=== PATIENT | male | born 1965 | race Caucasian/White ===

== ENCOUNTER 2024-07-20 12:19 | Emergency (ER) | payer OTHER, SELFPAY ==
[2024-07-20 12:27] VITALS: BP 145/85; PULSE 72; RESP 18; TEMP 36.8; O2SAT 99; BMI 20.8
--- NOTE | 2024-07-20 12:27 | ED_ITS ---
HPI - Headache General Chief Complaint: Headache Stated Complaint: migraine Time Seen by Provider: 07/20/24 15:05 Source: patient Mode of arrival: ambulatory Limitations: no limitations History of Present Illness ED Provider: veena colin np HPI Narrative: Patient is a 59-year-old male who presents to the emergency department for evaluation of acute on chronic migraine with onset yesterday, has been taking age scheduled trialed Excedrin migraine yesterday without improvement. He states that his current migraine feels typical without any acute changes from his baseline. Headache is left-sided, feels pain diffusely in and extends to neck again which is typically. He does endorse having blurred vision but this is bilateral and chronic, he needs a new prescription glasses. States that symptoms are usually improved when he comes to the hospital with Toradol and Ativan. Previous neurologist in [place] last seen about a year ago, had a CT about 1 year ago, no abnormal findings. Denies any red flag symptoms including fevers, chills, neck stiffness, malaise, aphasia, weakness, poor coordination, descriptors such as ?the worst headache ever ?or ?thunderclap?, or painful temporal region. Denies dizziness, lightheadedness, URI symptoms, chest pain, shortness of breath, numbness or tingling of the extremities. Related Data Allergies Allergy/AdvReac Type Severity Reaction Status Date / Time cyclobenzaprine Allergy Unknown SLEEP Verified 07/20/24 15:10 [From FLEXERIL] WALKING diphenhydramine Allergy Unknown UNSTEADY Verified 07/20/24 15:10 [From BENADRYL] GAIT itraconazole [From SPORANOX] Allergy Unknown RASH Verified 07/20/24 15:10 Review of Systems Review of Systems: Yes all other systems are reviewed and are negative [facility] Past Medical History Attestation statement: The following information was validated with the patient. Source: old records reviewed Social History Social History Advance Directives: No Advance Directives Information Provided: Yes Physical Exam Vital Signs: Vital Signs: Last Vital Signs Temp 98.2 F 07/20/24 12:27 Pulse 72 07/20/24 12:27 Resp 18 07/20/24 12:27 BP 145/85 H 07/20/24 12:27 Pulse Ox 99 07/20/24 12:27 O2 Del Method Room Air 07/20/24 12:27 BMI result Body Mass Index 20.8 Appearance: Alert.?Oriented to person, place and time. No acute distress.?Normal affect. Head: Normocephalic, atraumatic Eyes: Pupils equal, round and reactive to light. EOMI. No nystagmus. No ptosis. No tenderness to palpation over the temporal region. ENT: External auditory canal normal tympanic membrane pearly carl[place] and intact bilaterally. Oropharynx normal. Neck: Normal inspection.? Neck supple. No nuchal rigidity. CVS: Heart sounds normal. Normal heart rate and rhythm.? Pulses normal.?? Respiratory: No respiratory distress.? Lung sounds clear to auscultation bilaterally?? Abdomen: Soft and non-tender. Normoactive bowel sounds. ?? Skin: Skin warm and dry.? Normal skin color.? ?? Extremities: No lower extremity edema.? Neuro: Moves all extremities spontaneously. Sensation intact bilaterally. CN II- XII intact. No focal neuro deficits. Ambulatory with steady gait. Medications Administered Discontinued Medications Generic Name Dose Route Start Last Admin Trade Name Junitoq PRN Reason Stop Dose Admin Sodium Chloride 1,000 mls @ 999 mls/hr 07/20/24 15:15 07/20/24 16:22 Ns IV 07/20/24 16:15 Infused .Q1H1M GABRIELLA Infusion Ketorolac Tromethamine 15 mg 07/20/24 15:05 07/20/24 15:18 Ketorolac Tromethamine 15 Mg/Ml Vial IVPUSH 07/20/24 15:06 15 mg ONCE ONE Administration Lorazepam 1 mg 07/20/24 15:05 07/20/24 15:18 Lorazepam 2 Mg/Ml Vial IVPUSH 07/20/24 15:06 1 mg ONCE ONE Administration Medical Decision Making Medical Decision Making [facility] Narrative: Patient is a 59-year-old male with past medical history migraine headaches who presents emergency department for evaluation of acute on chronic migraine with no abnormal findings or changes from his baseline. Topiramate and Excedrin have not been helpful for him. He states he seldom requires intervention in the emergency department for migraines but typically Toradol and lorazepam relieve his symptoms. Trauma or injury to suggest SDH, SDH, ICH. Given no acute changes, recent imaging in the past year without abnormal findings lower suspicion for [employer]SULTANT mass. No recent infectious symptoms to suggest meningitis or encephalitis. No associated neck stiffness dizziness lightheadedness that would fever cervical artery dissection. No focal neurological deficits. Patient with a history of recurrent and or similar headache, there is no substantial change to typical headache pattern, there are no red flag symptoms, no focal neurological deficits, no high risk comorbidities, relieved with Toradol and Ativan, at this time feel that patient is stable for discharge home, advised of return precautions. Differential Diagnosis Differential Diagnoses: The differential diagnosis associated with the presentation includes (SDH, SAH, ICH, [employer] mass, meningitis, encephalitis, CVA, GCA, migraine, headache) Discharge Plan Discharge Clinical Impression: Migraine Patient Disposition: Home, Self-Care Instructions: Migraine Headache (ED) Additional Instructions: Migraine headache was resolved with Toradol and Ativan while in the emergency department. Continue taking your home medications as prescribed. Follow-up with PCP. Return with any new or worsening symptoms or concerns. Referrals: Physician,None [Primary Care Provider] - Print Language: Guyanese
--- OUTSIDE RECORDS SUMMARY | 2024-07-20 15:07 | XMS_ITS | Encounter Summary ---
Author Organization [employer]: [facility] Address [address] [place] [address] [address] [place] [address] Care Team Providers Care Physics Instructor Name Role Phone Unavailable Primary Care Provider Unavailabl e Encounter Details Date Type Department Care Team (Late st Contact Info) Description 11/16/2022 [facility] [address] [place] [address] Generic, Provider [address] [id number] Urology Progress Note 11/03/22 Social History Tobacco Use Types Packs/Day Years Used Date Smoking Tobacco: Never Assessed Sex and Gender Information Value Date Recorded Sex Assigned at Not on file Gender Identity Not on file Sexual Orientation Not on file documented as of this encounter Plan of Treatment Not on file documented as of this encounter Visit Diagnoses Not on filedocumented in this encounter
--- OUTSIDE RECORDS SUMMARY | 2024-07-20 15:07 | XMS_ITS | Continuity of Care Document ---
Author Organization [employer] Address [address] [place] [address] Phone Care Team Providers Care Gasfitter Name Role Phone Devorah Montoya Unavailable Unavailabl e Advance Directives Directive Yes / No Effective Date File Name No Information Encounters Encounter Description Practice Location Reason(s) For Visit Diagnoses Date Provider Providers Copied on Encounter [employer], [address], [id number], tel:[phone] [place] No Information 3 Rajesh Fairchild. [address] [place], [address], [place]. tel:[phone] Family History Family Member Type Diagnosis Age At Onset No Information Payers Payer name Insurance type Covered green party ID Authoriza tion(s) No Information Social History Type Description Quantity Date Captured Comments Sex Male Smoking Status No Information Chief Complaint And Reason For Visit No Information Reason For Referral Reason For Referral No Information Plan Of Treatment Date Type Action Status Goal Depression screening. Due on due Goal Td vaccine. Due on 23 due Goal Tdap. Due on due Goal FIT. Due on due Goal Influenza vaccine. Due on due Goal Colonoscopy. Due on 023 due Goal Cologuard. Due on 3 due Goal FIT-DNA. Due on due Goal Lipid panel. Due on 023 due Goal Hepatitis C screening. Due o n due Goal Zoster vaccine (). Due on due History Of Present Illness Encounter Date Complaint History Of Prese nt Illness No Information Functional Status Date Functional Assessmen t No Information Instructions Date Instruction Additional Infor mation No Information Assessments Type Assessment Date No Information Patient Care Teams Name Effective Dates (start - stop) Status Members No Information
--- OUTSIDE RECORDS SUMMARY | 2024-07-20 15:07 | XMS_ITS | Clinical Summary ---
Author Organization [employer]: [facility] & [facility] Address [address] [place] [address] [place] [address] Care Team Providers Care Mold Chipper Name Role Phone Unavailable Primary Care Provider Unavailabl e Social History Tobacco Use Types Packs/Day Years Used Date Smoking Tobacco: Never Assessed Sex and Gender Information Value Date Recorded Sex Assigned at Not on file Gender Identity Not on file Sexual Orientation Not on file Plan of Treatment Not on file
--- OUTSIDE RECORDS SUMMARY | 2024-07-20 15:07 | XMS_ITS | Referral Summary ---
Author Organization [employer]: [facility] & [facility] Address [address] [place] [address] [address] [address] Care Team Providers Care Pharmacy Services Director Name Role Phone Unavailable Primary Care Provider Unavailabl e Social History Tobacco Use Types Packs/Day Years Used Date Smoking Tobacco: Never Assessed Sex and Gender Information Value Date Recorded Sex Assigned at Not on file Gender Identity Not on file Sexual Orientation Not on file Plan of Treatment Not on file
[2024-07-20] MEDS: Ketorolac Tromethamine 15 MG/ML VIAL IVPUSH (15:18)
[2024-07-20] MEDS: LORazepam 2 MG/ML VIAL 1 MG IVPUSH (15:18)
[2024-07-20] MEDS: 0.9 % Sodium Chloride 1,000 ML 999 ML IV (15:19)
[2024-07-20 16:31] VITALS: BP 137/82; PULSE 68; RESP 16; TEMP 36.8; O2SAT 99
[2024-07-20 16:36] VITALS: BP 137/82; PULSE 68; RESP 16; TEMP 36.8; O2SAT 99
== END 2024-07-20 16:37 | disposition home or self-care (01) ==
PROVIDERS: Emergency Provider Emergency Medicine Emergency Medical Services
DX: G43.909 Migraine, unspecified, not intractable, without status migrainosus (principal); R11.0 Nausea; H53.8 Other visual disturbances; Z79.899 Other long term (current) drug therapy
CPT/HCPCS: 96361; 96374; 96375; 99284; J1885; J2060

== ENCOUNTER 2024-07-26 19:26 | Emergency (ER) | payer OTHER, SELFPAY ==
[2024-07-26 19:53] VITALS: BP 137/88; PULSE 63; RESP 16; TEMP 37.3; O2SAT 98; BMI 22.3
--- NOTE | 2024-07-26 19:55 | ED_ITS ---
HPI - General Adult General Chief complaint: Headache Stated complaint: migraine x3 days Time Seen by Provider: 07/26/24 23:38 Source: patient Limitations: no limitations History of Present Illness ED Provider: Ginna De La Paz PA-C HPI narrative: 59-year-old male with a history of migraine on Topamax, presents with migraine x3 days. Pain is left-sided and retro-orbital. Associated posterior left-sided neck pain, phonophobia and nausea. Denies photophobia, dizziness or active vomiting. Patient states his symptoms have been refractory to his home medications. Denies fever or recent illness. Related Data Allergies Allergy/AdvReac Type Severity Reaction Status Date / Time cyclobenzaprine Allergy Unknown SLEEP Verified 07/26/24 19:54 [From FLEXERIL] WALKING diphenhydramine Allergy Unknown UNSTEADY Verified 07/26/24 19:54 [From BENADRYL] GAIT itraconazole [From SPORANOX] Allergy Unknown RASH Verified 07/26/24 19:54 Review of Systems Review of Systems: Yes all other systems are reviewed and are negative Constitutional: Constitutional: Denies fatigue, Denies fever(s) and Reports headache(s) ENT: Denies dizziness, Reports headache(s) and Reports neck pain Cardiovascular: Cardiovascular: Denies chest pain and Denies dyspnea Respiratory: Respiratory: Denies cough and Denies dyspnea Gastrointestinal: Gastrointestinal: Reports nausea and Denies vomiting Musculoskeletal: Musculoskeletal: Reports neck pain Neurologic: Denies dizziness and Reports headache(s) Endocrine: Endocrine: Denies fatigue PMFSH Past Medical History Attestation statement: The following information was validated with the patient. Social History Social History Smoked in Last 30 Days: No Use of substances other than those prescribed or required for medical reasons: No Advance Directives: No Advance Directives Information Provided: No Do you have a plan to hurt others: No Plan Physical Exam ED Vital Signs: Vital Signs - 24 hr 07/26/24 19:53 07/27/24 00:34 Temperature 99.1 F 98.5 F Pulse Rate 63 87 Respiratory Rate 16 18 Blood Pressure 137/88 135/78 Pulse Oximetry 98 98 Oxygen Delivery Method Room Air Room Air BMI result Body Mass Index 22.3 Const Other: Alert well in appearance Orientation/consciousness: patient oriented x3 Neck Other: Full range of motion no meningeal signs Resp Effort & Inspection: normal respiratory effort Cardio Other: Normal peripheral perfusion Skin Other: Warm dry no rash Neuro General: patient oriented x3, gait normal, no focal motor deficits and CN's II- XI intact bilaterally Psych Other: Cooperative Course Course Course Narrative: This is a rapid medical exam performed by Vivian Daily NP: Additional HPI, ROS, PE not included below will be deferred to primary provider. Patient is a 59-year-old male with history of migraines presenting to the emergency department with complaint of headache for the past 3 days. Has used Topamax and Excedrin with little relief. States pain is beginning to radiate into neck, feels cramping sensation. Denies nausea vomiting. Reevaluation(s) Reevaluation #1: Headache resolved Time: 01:13 Medications Administered Generic Name Dose Route Start Last Admin Trade Name Freq PRN Reason Stop Dose Admin Sodium Chloride 1,000 mls @ 999 mls/hr 07/27/24 00:15 07/27/24 00:20 Ns IV 07/27/24 01:15 999 mls/hr .Q1H1M GABRIELLA Administration Discontinued Medications Generic Name Dose Route Start Last Admin Trade Name Freq PRN Reason Stop Dose Admin Ketorolac Tromethamine 15 mg 07/27/24 00:12 07/27/24 00:20 Ketorolac Tromethamine 15 Mg/Ml Vial IVPUSH 07/27/24 00:13 15 mg ONCE ONE Administration Midazolam HCl 2.5 mg 07/27/24 00:12 07/27/24 00:20 Midazolam Hcl 5 Mg/Ml Vial IVPUSH 07/27/24 00:13 2.5 mg ONCE ONE Administration Medical Decision Making Medical Decision Making [facility] Narrative: 59-year-old male with a history of migraine on Topamax, presents with migraine x3 days. Pain is left-sided and retro-orbital. Associated posterior left-sided neck pain, phonophobia and nausea. Denies photophobia, dizziness or active v omiting. Patient states his symptoms have been refractory to his home medications. Denies fever or recent illness. Problem: Migraine History: Per patient I have considered the following differential diagnoses: Migraine, intracranial hemorrhage, meningitis Plan: Patient here with a migraine with symptoms that are typical for him. He states Toradol and Ativan with IV fluid typically help his symptoms. Given absence of Ativan we will give Versed. Thought about intracranial hemorrhage, however there was no preceding trauma, the patient was neurologically intact, no indication for head CT. Thought about meningitis given concurrent neck pain, however there were no meningeal signs on exam he has not been ill he is afebrile. Discharge Plan Discharge Clinical Impression: Migraine Patient Disposition: Home, Self-Care Instructions: Migraine Headache (ED) Additional Instructions: Your headache improved with Toradol and Versed. Continue to follow up with the providers that manage your chronic migraines. Print Language: [place] Islander
--- OUTSIDE RECORDS SUMMARY | 2024-07-26 22:15 | XMS_ITS | Clinical Summary ---
Author Organization [employer]: [facility] Address [address] [place] [address] [place] [address] Care Team Providers Care Special Assets Officer Name Role Phone Unavailable Primary Care Provider Unavailabl e Social History Tobacco Use Types Packs/Day Years Used Date Smoking Tobacco: Never Assessed Sex and Gender Information Value Date Recorded Sex Assigned at Not on file Gender Identity Not on file Sexual Orientation Not on file Plan of Treatment Not on file
--- OUTSIDE RECORDS SUMMARY | 2024-07-26 22:15 | XMS_ITS | Referral Summary ---
Author Organization [employer]: [facility] Address [address] [place] [address] [address] Care Team Providers Care Connection Worker Name Role Phone Unavailable Primary Care Provider Unavailabl e Social History Tobacco Use Types Packs/Day Years Used Date Smoking Tobacco: Never Assessed Sex and Gender Information Value Date Recorded Sex Assigned at Not on file Gender Identity Not on file Sexual Orientation Not on file Plan of Treatment Not on file
--- OUTSIDE RECORDS SUMMARY | 2024-07-26 22:15 | XMS_ITS | Continuity of Care Document ---
Author Organization [employer] Address [address] [place] [address] Phone Care Team Providers Care Tax Compliance Agent Name Role Phone Devorah Montoya Unavailable Unavailabl e Advance Directives Directive Yes / No Effective Date File Name No Information Encounters Encounter Description Practice Location Reason(s) For Visit Diagnoses Date Provider Providers Copied on Encounter [employer], [address], [id number], tel:[phone] [place] No Information 3 Rajesh Fairchild. [address] [place], [address], [place]. tel:[phone] Family History Family Member Type Diagnosis Age At Onset No Information Payers Payer name Insurance type Covered green party ID Authoriza tion(s) No Information Social History Type Description Quantity Date Captured Comments Sex Male Smoking Status No Information Chief Complaint And Reason For Visit No Information Reason For Referral Reason For Referral No Information Plan Of Treatment Date Type Action Status Goal Zoster vaccine (1st). Due on due Goal Hepatitis C screening. Due o n due Goal Lipid panel. Due on 023 due Goal Depression screening. Due on due Goal Td vaccine. Due on 23 due Goal FIT-DNA. Due on due Goal Cologuard. Due on 3 due Goal Colonoscopy. Due on 023 due Goal Influenza vaccine. Due on due Goal Tdap. Due on due Goal FIT. Due on due History Of Present Illness Encounter Date Complaint History Of Prese nt Illness No Information Functional Status Date Functional Assessmen t No Information Instructions Date Instruction Additional Infor mation No Information Assessments Type Assessment Date No Information Patient Care Teams Name Effective Dates (start - stop) Status Members No Information
[2024-07-27] MEDS: 0.9 % Sodium Chloride 1,000 ML 999 ML IV (00:20)
[2024-07-27] MEDS: Midazolam HCl 5 MG/ML VIAL 2.5 MG IVPUSH (00:20)
[2024-07-27] MEDS: Ketorolac Tromethamine 15 MG/ML VIAL IVPUSH (00:20)
[2024-07-27 00:34] VITALS: BP 135/78; PULSE 87; RESP 18; TEMP 36.9; O2SAT 98
--- NOTE | 2024-07-27 01:10 | PC.NURSE ---
after medication administration, pt reports pain relief and headache has subsided. jennifer evans
[2024-07-27 01:18] VITALS: BP 135/78; PULSE 87; RESP 18; TEMP 36.9; O2SAT 98
== END 2024-07-27 01:19 | disposition home or self-care (01) ==
PROVIDERS: Emergency Provider Emergency Medicine
DX: G43.909 Migraine, unspecified, not intractable, without status migrainosus (principal)
CPT/HCPCS: 96361; 96374; 96375; 99284; 99285; J1885; J2250

== ENCOUNTER → 2025-04-10 18:42 | Outpatient (BNV) | payer OTHER, SELFPAY | PROVIDERS: Admitting Provider Family Medicine; Emergency Provider Student in an Organized Health Care Education/Training Program; Visit Provider Internal Medicine | DX: R94.31 Abnormal electrocardiogram [ECG] [EKG] (principal); R07.9 Chest pain, unspecified; E87.6 Hypokalemia | CPT/HCPCS: 93010 ==

== ENCOUNTER → 2025-04-10 18:55 | Outpatient (BNV) | payer OTHER, SELFPAY | PROVIDERS: Emergency Provider Student in an Organized Health Care Education/Training Program; Visit Provider Student in an Organized Health Care Education/Training Program | DX: J98.11 Atelectasis (principal); J90 Pleural effusion, not elsewhere classified; R07.9 Chest pain, unspecified | CPT/HCPCS: 71045; 71275 ==

== ENCOUNTER → 2025-04-10 22:44 | Outpatient (BNV) | payer MEDICARE, SELFPAY | PROVIDERS: Admitting Provider Family Medicine; Emergency Provider Student in an Organized Health Care Education/Training Program; Visit Provider Internal Medicine Pulmonary Disease | DX: R91.8 Other nonspecific abnormal finding of lung field (principal); Z21 Asymptomatic human immunodeficiency virus [HIV] infection status | CPT/HCPCS: 99223 ==

== ENCOUNTER → 2025-04-10 22:44 | Outpatient (BNV) | payer MEDICARE, SELFPAY | PROVIDERS: Admitting Provider Family Medicine; Emergency Provider Student in an Organized Health Care Education/Training Program; Visit Provider Internal Medicine | DX: R91.8 Other nonspecific abnormal finding of lung field (principal); D64.9 Anemia, unspecified; R79.89 Other specified abnormal findings of blood chemistry | CPT/HCPCS: 99222 ==

== ENCOUNTER → 2025-04-10 22:44 | Outpatient (BNV) | payer MEDICARE, SELFPAY | PROVIDERS: Admitting Provider Family Medicine; Emergency Provider Student in an Organized Health Care Education/Training Program; Visit Provider Psychiatry & Neurology Neurology | DX: G40.909 Epilepsy, unspecified, not intractable, without status epilepticus (principal); G93.40 Encephalopathy, unspecified | CPT/HCPCS: 99222 ==

== ENCOUNTER → 2025-04-10 22:44 | Outpatient (BNV) | payer OTHER, SELFPAY | PROVIDERS: Admitting Provider Family Medicine; Emergency Provider Student in an Organized Health Care Education/Training Program; Visit Provider Family Medicine | DX: B20 Human immunodeficiency virus [HIV] disease (principal); R00.0 Tachycardia, unspecified; D72.810 Lymphocytopenia; D64.9 Anemia, unspecified; J90 Pleural effusion, not elsewhere classified; R91.8 Other nonspecific abnormal finding of lung field | CPT/HCPCS: 99222; 99232; 99499 ==

== ENCOUNTER → 2025-04-10 22:44 | Outpatient (BNV) | payer MEDICARE, SELFPAY | PROVIDERS: Admitting Provider Family Medicine; Emergency Provider Student in an Organized Health Care Education/Training Program; Visit Provider Internal Medicine | DX: B20 Human immunodeficiency virus [HIV] disease (principal) | CPT/HCPCS: 99232; 99499 ==